=== PATIENT | male | born 1965 | race African-American/Black ===

== ENCOUNTER 2019-12-17 19:08 | Emergency (ER) | payer OTHER, SELFPAY ==
--- NOTE | ~2019-12-17 | XR_ITS ---
EXAMINATION: XR chest 2V DATE: 12/17/2019 20:11 INDICATION: Cough and shortness of breath TECHNIQUE: PA and lateral views of the chest were obtained. COMPARISON: Chest radiograph dated 04/01/2019 FINDINGS: Chronic tiny calcified nodules and branching Y pattern at the right lung base consistent with old gra nulomatous disease. The lungs remain otherwise clear with no focal airspace opacities, pulmonary chaitanya a, pleural effusion or pneumothorax. The cardiomediastinal silhouette is normal. Visualized bones and soft tissues are unremarkable. IMPRESSION: 1. No acute cardiopulmonary disease. Reviewed, dictated and finalized at location A. ISTRY ASSOCIATE
[2019-12-17 19:10] VITALS: BP 119/76; PULSE 74; RESP 18; TEMP 37; O2SAT 100
[2019-12-17 19:25] VITALS: O2SAT 100
--- NOTE | 2019-12-17 19:31 | ED.URI ---
HPI - URI/Sore Throat General Chief Complaint: Upper Respiratory Infection Stated Complaint: SOB, HIGHTOWER Time Seen by Provider: 12/17/19 19:23 Source: patient Mode of arrival: ambulatory Limitations: no limitations History of Present Illness HPI Narrative: This is a 54 year old male that presents to the ER for cold symptoms x 3 days. Reports cough, congestion, headache, sore throat and wheezing. Reports a history of asthma. Reports he has been doing his nebulizer treatments at home with little relief. Denies fever or chest pain. Related Data Allergies Allergy/AdvReac Type Severity Reaction Status Date / Time No Known Allergies Allergy Verified 12/17/19 19:29 Review of Systems Review of Systems: Narrative: CONSTITUTIONAL: Denies fever ENT: Reports rhinorrhea, congestion, sore throat. Denies otalgia. CARDIOVASCULAR: Denies chest pain RESPIRATORY: Reports cough and dyspnea. NEUROLOGIC: Reports headache. Denies weakness. All systems reviewed & are unremarkable except as noted in HPI and below PMFSH Past Medical History Medical History (Updated 12/17/19 @ 20:49 by Tierra Maria PA-C) History of asthma History of hyperlipidemia History of hypertension Social History Social History Gender identity (if verbalized by the patient): Male Exam Narrative: Exam Narrative: GENERAL: Well-appearing, well-nourished, and in no acute distress. HEAD: Normocephalic, atraumatic. EYES: EOMI. ENT: Turbinates swollen and pale. Mucous membranes moist. Oropharynx without tonsillar hypertrophy exudate or other lesions. Bilateral TMs pearly martinez non-bulging NECK: Supple. No adenopathy or masses. CHEST: No respiratory distress. Diffuse expiratory wheezing. No rales or rhonchi HEART: Regular rate and rhythm. No murmur heard. Normal peripheral pulses. EXTREMITIES: Normal range of motion. No edema. SKIN: Warm, dry, no rash. NEURO: No focal deficits. Alert and oriented x3. PSYCH: Normal mood and affect Course Vital Signs Vital signs: Vital Signs Temperature 98.6 F 12/17/19 19:10 Pulse Rate 74 12/17/19 19:10 Respiratory Rate 18 12/17/19 19:10 Blood Pressure 119/76 12/17/19 19:10 Pulse Oximetry 100 12/17/19 19:10 Temperature 98.6 F 12/17/19 19:10 Pulse Rate 79 12/17/19 20:31 Respiratory Rate 18 12/17/19 20:31 Blood Pressure 119/76 12/17/19 19:10 Pulse Oximetry 100 12/17/19 19:25 MDM - URI/Sore Throat MDM Narrative Medical decision making narrative: Patient presents the emergency department for cold symptoms x3 days. Patient reports history of asthma and he has been nebulizer treatments more than usual. Patient with diffuse expiratory wheezing initially. This improved after nebulizer treatments and a dose of IV steroids. His vitals have been normal. CBC and metabolic panel without acute changes. Chest x-ray without acute changes. Patient was instructed to continue nebulizer treatments as needed and will be started on 5 days of prednisone for asthma exacerbation. He is to follow-up with his primary care doctor. He was given warnings to return to the ER Lab Data Attestation: I reviewed the patient's lab results. Result diagrams: 12/17/19 19:42 12/17/19 19:42 Labs: Lab Results 12/17/19 12/17/19 Range/Units 19:42 19:42 WBC 8.5 (4.5-10.0) K/mm3 RBC 5.46 (4.6-6.20) M/mm3 Hgb 14.4 (14.0-18.0) g/dL Hct 45.8 (42.0-52.0) % MCV 83.9 (80-100) fl MCH 26.4 (26-34) pg MCHC 31.4 L (32-36) g/dl RDW 12.8 (11.5-14.5) % Plt Count 313 (150-375) k/mm3 MPV 9.3 (7.4-10.4) fl Immature Gran % (Auto) 2.7 H (0-0.5) % Neut % (Auto) 30.3 L (45.5-73.1) % Lymph % (Auto) 42.5 (18.3-44.2) % [place] % (Auto) 8.8 H (2.6-8.5) % Eos % (Auto) 14.2 H (0-4.4) % Baso % (Auto) 1.5 H (0.2-1.2) % Lymph # (Auto) 3.60 H (0.9-3.2) K/mm3 [place] # (Auto) 0.8 H (0.1-0.6) K/mm3 Eos # (Auto) 1.2 H (0-0.3) K/mm3 Baso # (Auto) 0.1
[2019-12-17 19:45] VITALS: PULSE 73; RESP 16
[2019-12-17] MEDS: methylPREDNISolone SOD SUCC 125 MG VIAL IV PUSH (19:45)
[2019-12-17] MEDS: IPRATROPIUM BR 0.02% INH SOLN 0.5 MG/2.5 ML VIAL INHALATION ×2 (19:45→20:31)
[2019-12-17] MEDS: ALBUTEROL SULFATE NEB 2.5 MG/0.5 ML INH 5 MG INHALATION ×2 (19:45→20:31)
[2019-12-17 19:49] LABS: Basophils Absolute Auto 0.1 K/mm3 (0.0-0.1); Basophils Percent Auto 1.5 % (0.2-1.2); Eosinophils Absolute Auto 1.2 K/mm3 (0-0.3); Eosinophils Percent Auto 14.2 % (0-4.4); Hematocrit 45.8 % (42.0-52.0); Hemoglobin 14.4 g/dL (14.0-18.0); Immature Granulocyte Absolute 0.23 K/mm3 (0.00-0.031); Immature Granulocyte Percent A 2.7 % (0-0.5); Lymphocytes Percent Auto 42.5 % (18.3-44.2); Mean Corpuscular HGB Conc 31.4 g/dl (32-36); Mean Corpuscular Hemoglobin 26.4 pg (26-34); Mean Corpuscular Volume 83.9 fl (80-100); Mean Platelet Volume 9.3 fl (7.4-10.4); Monocytes Absolute Auto 0.8 K/mm3 (0.1-0.6); Monocytes Percent Auto 8.8 % (2.6-8.5); Neutrophils Absolute Auto 2.6 K/mm3 (1.3-6.7); Neutrophils Percent Auto 30.3 % (45.5-73.1); Platelet Count Result 313 k/mm3 (150-375); Red Blood Count 5.46 M/mm3 (4.6-6.20); Red Cell Distribution Width 12.8 % (11.5-14.5); White Blood Count 8.5 K/mm3 (4.5-10.0)
[2019-12-17 19:57] VITALS: PULSE 77; RESP 18
[2019-12-17 20:02] LABS: Blood Urea Nitrogen 17 mg/dL (9-20); Calcium 9.4 mg/dL (8.4-10.2); Carbon Dioxide 29 mmol/L (22-30); Chloride 97 mmol/L (98-107); Estimated CRCL calculation 76 ml/min; Estimated Glomerular Filt Rate > 60; Glucose 93 mg/dL (75-110); Potassium 3.8 mmol/L (3.4-5.0); Sodium 135 mmol/L (137-145)
[2019-12-17 20:31] VITALS: PULSE 79; RESP 18
[2019-12-17 21:39] VITALS: BP 102/57; PULSE 81; RESP 20; O2SAT 97
== END 2019-12-17 21:17 | disposition home or self-care (01) ==
PROVIDERS: Physician Assistant; Emergency Provider Emergency Medicine; PCP Registered Nurse
DX: J45.21 Mild intermittent asthma with (acute) exacerbation (principal); E78.5 Hyperlipidemia, unspecified; I10 Essential (primary) hypertension
CPT/HCPCS: 36415; 71046; 80048; 85025; 87804; 94640; 96374; 99284; J2930

== ENCOUNTER 2020-05-08 15:58 | Emergency (ER) | payer OTHER, SELFPAY ==
[2020-05-08] VITALS (8 sets, daily range): BP systolic 104–175; BP diastolic 68–84; PULSE 83–99; RESP 14–24; TEMP 37.1; O2SAT 95–100
--- NOTE | ~2020-05-08 | XR_ITS ---
EXAMINATION: XR chest 2V DATE: 05/08/2020 17:17 INDICATION: Shortness of breath TECHNIQUE: PA and lateral views of the chest are obtained. COMPARISON: 12/17/2019 FINDINGS: The lungs are free of acute opacities. There is no pleural effusion or pneumothorax. The ca rdiomediastinal silhouette is normal. The visualized bones and soft tissues are unremarkable. IMPRESSION: 1. No acute cardiopulmonary abnormality. Reviewed, dictated and finalized at location A.
--- NOTE | 2020-05-08 16:17 | ED.GENADULT ---
HPI - General Adult General Chief complaint: Shortness of Breath/Dyspnea Stated complaint: wheezing Time Seen by Provider: 05/08/20 16:12 Source: patient Mode of arrival: ambulatory Limitations: no limitations History of Present Illness HPI narrative: Patient is a 54-year-old male who presents for evaluation of shortness of breath. Patient reports he has a history of asthma/COPD, has been using albuterol and treatments at home without much improvement in his symptoms. States he has had increased wheezing over the past 24 hours. Not currently taking any antibiotics or steroids. No cough or fever. Patient reports some sinus congestion, denies sore throat. No myalgias, no nausea, vomiting, chest pain, diarrhea. No known COVID exposures. No recent sick contacts. Related Data Home Medications Medication Instructions Recorded Confirmed albuterol sulfate INHALATION PRN PRN 05/08/20 aspirin DAILY 05/08/20 budesonide-formoterol [Symbicort] INHALATION DAILY 05/08/20 fluticasone propionate INTRANASAL DAILY 05/08/20 hydrochlorothiazide DAILY 05/08/20 ipratropium-albuterol ml INHALATION PRN PRN 05/08/20 losartan DAILY 05/08/20 simvastatin mg HS 05/08/20 umeclidinium [Incruse Ellipta] INHALATION DAILY 05/08/20 Allergies Allergy/AdvReac Type Severity Reaction Status Date / Time No Known Allergies Allergy Verified 05/08/20 16:08 Review of Systems Review of Systems: Narrative: CONSTITUTIONAL: Denies fever, chills, or sweats. ENT: Reports sinus congestion, denies sore throat or otalgia CARDIOVASCULAR: Denies chest pain RESPIRATORY: Reports wheezing and shortness of breath GASTROINTESTINAL: Denies abdominal pain, nausea, vomiting, or diarrhea. GENITOURINARY: Denies dysuria or hematuria. SKIN: Denies rash or itching. MUSCULOSKELETAL: Denies back pain, joint pain, or myalgia. NEUROLOGIC: Denies headache, numbness, or weakness. [facility] Past Medical History Medical History (Updated 05/08/20 @ 18:24 by Kim Avitia MD) History of asthma History of hyperlipidemia History of hypertension Left wrist fracture Surgical History Surgical History H/O left wrist surgery Social History Social History (Updated 05/08/20 @ 16:28 by Kim Avitia MD) Smoking status: Never smoker Alcohol intake: never Substance use: never Gender identity (if verbalized by the patient): Male Exam Narrative: Exam Narrative: GENERAL: Awake, alert, conversant HEAD: Normocephalic, atraumatic. EYES: PERRLA and EOMI. ENT: Nares clear, no rhinorrhea or epistaxis. Mucous membranes moist. Sinus congestion. NECK: Supple. CHEST: No respiratory distress, mild tachypnea, wheezing present bilateral lung flores HEART: Regular rate, sinus rhythm ABDOMEN:Non distended, non tender EXTREMITIES: Normal range of motion. No edema. SKIN: Warm, dry, no rash. NEURO:No focal deficits. Alert and oriented x3 Course Vital Signs Vital signs: Vital Signs Temperature 37.1 C 05/08/20 16:09 Pulse Rate 94 05/08/20 16:09 Respiratory Rate 22 H 05/08/20 16:09 Blood Pressure 175/84 H 05/08/20 16:09 Pulse Oximetry 96 05/08/20 16:09 Temperature 37.1 C 05/08/20 16:09 Pulse Rate 86 05/08/20 17:44 Respiratory Rate 18 05/08/20 17:44 Blood Pressure 104/68 05/08/20 17:44 Pulse Oximetry 95 05/08/20 17:44 Medical Decision Making MDM Narrative Medical decision making narrative: The patient presented for evaluation of wheezing and shortness of breath. Patient states this feels very consistent with asthma exacerbations he has had in the past, has been using his albuterol treatments at home with some improvement in his symptoms. Because wheezing persisted, patient sought care in the emergency department. The time of assessment, ABCs are intact and vital signs are stable. He has mild tachypnea, no severe hypoxemia or respiratory distress. He has expiratory wheezing in
[2020-05-08] MEDS: IPRATROPIUM BR 0.02% INH SOLN 0.5 MG/2.5 ML VIAL INHALATION (16:37)
[2020-05-08] MEDS: ALBUTEROL SULFATE NEB 2.5 MG/0.5 ML INH 5 MG INHALATION (16:37)
[2020-05-08] MEDS: methylPREDNISolone SOD SUCC 125 MG VIAL IV PUSH (16:40)
[2020-05-08] MEDS: MAGNESIUM SULF 2 GM/WATER 50ML 2 GM/50 ML BAG IVPB (16:40)
[2020-05-08 16:42] LABS: Basophils Absolute Auto 0.1 K/mm3 (0.0-0.1); Basophils Percent Auto 0.9 % (0.2-1.2); Eosinophils Absolute Auto 0.2 K/mm3 (0-0.3); Eosinophils Percent Auto 1.6 % (0-4.4); Hematocrit 40.3 % (42.0-52.0); Hemoglobin 13.1 g/dL (14.0-18.0); Immature Granulocyte Absolute 0.05 K/mm3 (0.00-0.031); Immature Granulocyte Percent A 0.5 % (0-0.5); Lymphocytes Absolute Auto 2.04 K/mm3 (0.9-3.2); Lymphocytes Percent Auto 21.8 % (18.3-44.2); Mean Corpuscular HGB Conc 32.5 g/dl (32-36); Mean Corpuscular Hemoglobin 27.4 pg (26-34); Mean Corpuscular Volume 84.3 fl (80-100); Mean Platelet Volume 9.5 fl (7.4-10.4); Monocytes Percent Auto 10.3 % (2.6-8.5); Neutrophils Absolute Auto 6.1 K/mm3 (1.3-6.7); Neutrophils Percent Auto 64.9 % (45.5-73.1); Platelet Count Result 243 k/mm3 (150-375); Red Blood Count 4.78 M/mm3 (4.6-6.20); Red Cell Distribution Width 13.2 % (11.5-14.5); White Blood Count 9.4 K/mm3 (4.5-10.0)
[2020-05-08 16:53] LABS: Blood Urea Nitrogen 13 mg/dL (9-20); Calcium 9.2 mg/dL (8.4-10.2); Carbon Dioxide 26 mmol/L (22-30); Chloride 104 mmol/L (98-107); Estimated CRCL calculation 64 ml/min; Estimated Glomerular Filt Rate > 60; Glucose 116 mg/dL (75-110); Potassium 4.1 mmol/L (3.4-5.0); Sodium 136 mmol/L (137-145)
[2020-05-08] MEDS: ALBUTEROL SULFATE NEB 2.5 MG/0.5 ML INH 10 MG INHALATION (18:25)
--- NOTE | 2020-05-08 19:02 | PC.NURSE ---
amb around dept on room air. o2 sat 97-99%. pt nataly well. updated on pt status
== END 2020-05-08 19:07 | disposition home or self-care (01) ==
PROVIDERS: Emergency Provider Emergency Medicine; PCP Registered Nurse
DX: J45.41 Moderate persistent asthma with (acute) exacerbation (principal); E78.5 Hyperlipidemia, unspecified; I10 Essential (primary) hypertension; J44.9 Chronic obstructive pulmonary disease, unspecified
CPT/HCPCS: 36415; 71046; 80048; 85025; 94640; 96365; 96375; 99284; J2930; J3475

== ENCOUNTER 2020-12-15 20:53 | Emergency (ER) | payer OTHER, SELFPAY ==
--- NOTE | ~2020-12-15 | XR_ITS ---
EXAMINATION: XR chest 2V 12/15/2020 22:09 INDICATION: Cough and shortness of breath. Chest pain. PROCEDURE: 2 view chest COMPARISON: Comparison to multiple prior studies sequentially, with oldest reviewed study dated 01/02. FINDINGS: The lungs are clear. The cardiomediastinal silhouette is within normal limits. There are no pleural effusions. There is no pneumothorax suspected. IMPRESSION: 1: NO ACUTE CARDIOPULMONARY DISEASE. Reviewed, dictated and finalized at location A. F DIGITAL OFFICER
[2020-12-15 20:58] VITALS: BP 141/79; PULSE 84; RESP 17; TEMP 36.9; O2SAT 98
--- NOTE | 2020-12-15 21:57 | ECG_ITS ---
Measurements Intervals [place] Rate: 70 P: IA: 0 QRS: 74 QRSD: 89 T: 53 QT: 372 QTc: 402 Interpretive Statements SINUS RHYTHM FREQUENT ATRIAL PREMATURE COMPLEXES VOLTAGE CRITERIA FOR LVH ABNORMAL ECG Electronically Signed On 12-16-2020 7:03:35 FAMILY LAW MEDIATOR by Robel Aguilar D.O.
--- NOTE | 2020-12-15 21:58 | ED.BACK ---
HPI - Back Pain/Injury General Chief Complaint: Back Pain/Injury Stated Complaint: back pain, wheezing, sinus congestion Time Seen by Provider: 12/15/20 21:11 Source: patient Mode of arrival: ambulatory Limitations: no limitations History of Present Illness HPI Narrative: Patient is a 55-year-old male complaining of cough, productive, clear sputum, and left upper back pain x3 to 4 days. Patient states his upper back pain is 5 out of 10, dull, worse with coughing and movement. Patient denies any chest pain, shortness of breath, abdominal pain, nausea, vomiting, diaphoresis, fever or chills. Related Data Home Medications Medication Instructions Recorded Confirmed albuterol sulfate INHALATION PRN PRN 05/08/20 aspirin DAILY 05/08/20 budesonide-formoterol [Symbicort] INHALATION DAILY 05/08/20 fluticasone propionate INTRANASAL DAILY 05/08/20 hydrochlorothiazide DAILY 05/08/20 ipratropium-albuterol ml INHALATION PRN PRN 05/08/20 losartan DAILY 05/08/20 simvastatin mg HS 05/08/20 umeclidinium [Incruse Ellipta] INHALATION DAILY 05/08/20 Allergies Allergy/AdvReac Type Severity Reaction Status Date / Time No Known Allergies Allergy Verified 12/15/20 21:04 Review of Systems Review of Systems: All systems reviewed & are unremarkable except as noted in HPI and below Constitutional: Constitutional: Denies body ache(s), Denies chills, Denies excessive sweating, Denies fatigue, Denies fever(s), Denies headache(s), Denies lethargy, Denies malaise, Denies weakness and Denies weight loss Eyes: Eyes: Denies blurry vision, Denies change in vision and Denies loss of vision ENT: Denies dizziness, Denies ear discharge, Denies headache(s), Denies lip swelling, Denies epistaxis, Denies nasal congestion, Denies neck pain, Denies throat swelling and Denies tongue swelling Cardiovascular: Cardiovascular: Denies chest pain, Denies chest pain at rest, Denies chest pain with activity, Denies diaphoresis, Denies rapid heart rate, Denies edema, Denies irregular heart rhythm, Denies lightheadedness, Denies palpitations, Denies dyspnea and Denies dyspnea on exertion Respiratory: Respiratory: Denies chest congestion, Denies hemoptysis, Denies dyspnea and Denies dyspnea on exertion Gastrointestinal: Gastrointestinal: Denies abdominal pain, Denies melena, Denies hematochezia, Denies diarrhea, Denies nausea, Denies vomiting and Denies hematemesis Musculoskeletal: Musculoskeletal: Denies abnormal gait, Denies deformity, Denies joint swelling, Denies limited range of motion, Denies neck pain and Denies numbness Neurologic: Denies Abnormal speech present, Denies abnormal gait, Denies confusion, Denies dizziness, Denies headache(s), Denies focal weakness, Denies loss of vision, Denies numbness, Denies Other visual disturbances, Denies Sensory deficit (Neuro) and Denies weakness Psychiatric: Psychiatric: Denies confusion, Denies depression, Denies auditory hallucinations, Denies homicidal ideation and Denies suicidal ideation Endocrine: Endocrine: Denies cold intolerance, Denies excessive sweating, Denies fatigue, Denies heat intolerance and Denies palpitations Hematologic/Lymphatic: Hematologic/Lymphatic: Denies easy bleeding and Denies easy bruising Allergic/Immunologic: Allergic/Immunologic: Denies lip swelling, Denies throat swelling and Denies tongue swelling PMFSH Past Medical History Medical History History of asthma History of hyperlipidemia History of hypertension Left wrist fracture Surgical History Surgical History H/O left wrist surgery Social History Social History Smoking status: Never smoker Alcohol intake: never Substance use: never Gender identity (if verbalized by the patient): Male Exam Const: General: cooperative, healthy appearing, comfortable, no
[2020-12-15 22:10] LABS: Basophils Absolute Auto 0.2 K/mm3 (0.0-0.1); Basophils Percent Auto 2.5 % (0.2-1.2); Eosinophils Absolute Auto 1.3 K/mm3 (0-0.3); Eosinophils Percent Auto 18.7 % (0-4.4); Hematocrit 40.3 % (42.0-52.0); Hemoglobin 12.8 g/dL (14.0-18.0); Immature Granulocyte Absolute 0.01 K/mm3 (0.00-0.031); Immature Granulocyte Percent A 0.1 % (0-0.5); Lymphocytes Absolute Auto 2.67 K/mm3 (0.9-3.2); Lymphocytes Percent Auto 38.8 % (18.3-44.2); Mean Corpuscular HGB Conc 31.8 g/dl (32-36); Mean Corpuscular Hemoglobin 26.8 pg (26-34); Mean Corpuscular Volume 84.5 fl (80-100); Mean Platelet Volume 9.1 fl (7.4-10.4); Monocytes Absolute Auto 0.6 K/mm3 (0.1-0.6); Monocytes Percent Auto 8.4 % (2.6-8.5); Neutrophils Absolute Auto 2.2 K/mm3 (1.3-6.7); Neutrophils Percent Auto 31.5 % (45.5-73.1); Platelet Count Result 265 k/mm3 (150-375); Red Blood Count 4.77 M/mm3 (4.6-6.20); White Blood Count 6.9 K/mm3 (4.5-10.0)
[2020-12-15 22:22] LABS: Alanine Aminotransferase 14 U/L (4-50); Albumin Level 3.8 g/dL (3.5-5.1); Alkaline Phosphatase 61 U/L (38-126); Anion Gap 4 mmol/L (8-16); Aspartate Amino Transferase 24 U/L (17-59); Bilirubin,Total 0.7 mg/dL (0.2-1.3); Blood Urea Nitrogen 12 mg/dL (9-20); Calcium 8.8 mg/dL (8.4-10.2); Carbon Dioxide 28 mmol/L (22-30); Chloride 106 mmol/L (98-107); Estimated CRCL calculation 55 ml/min; Estimated Glomerular Filt Rate > 60; Glucose 99 mg/dL (75-110); Potassium 3.9 mmol/L (3.4-5.0); Sodium 138 mmol/L (137-145)
[2020-12-15 22:26] LABS: D Dimer < 0.22 ug/mL (<0.48)
[2020-12-15 23:08] VITALS: BP 138/79; PULSE 78; RESP 17; O2SAT 98
== END 2020-12-15 23:10 | disposition home or self-care (01) ==
PROVIDERS: Emergency Provider Emergency Medicine; PCP Registered Nurse
DX: J20.9 Acute bronchitis, unspecified (principal); S29.019A Strain of muscle and tendon of unspecified wall of thorax, initial encounter; J45.909 Unspecified asthma, uncomplicated; E78.5 Hyperlipidemia, unspecified; I10 Essential (primary) hypertension; R94.31 Abnormal electrocardiogram [ECG] [EKG]
CPT/HCPCS: 36415; 71046; 80053; 85025; 85380; 93005; 99283

== ENCOUNTER 2021-05-23 21:53 | Emergency (ER) | payer OTHER, SELFPAY ==
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
[2021-05-23 22:04] VITALS: BP 134/71; PULSE 87; RESP 20; TEMP 36.7; O2SAT 99
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
[2021-05-23] MEDS: IBUPROFEN 400 MG TABLET 800 MG PO (22:56)
--- NOTE | 2021-05-23 22:56 | PC.NURSE ---
Patient does not want to take cyclobenzaprine at this time. States he may take it when he is discharged. Patient to xray at this time.
== END 2021-05-23 23:43 | disposition home or self-care (01) ==
LOC: ANHED 23:30
PROVIDERS: Emergency Provider General Practice; PCP Registered Nurse
DX: S16.1XXA Strain of muscle, fascia and tendon at neck level, initial encounter (principal); S46.912A Strain of unspecified muscle, fascia and tendon at shoulder and upper arm level, left arm, initial encounter; J45.909 Unspecified asthma, uncomplicated; E78.5 Hyperlipidemia, unspecified; I10 Essential (primary) hypertension; Z79.84 Long term (current) use of oral hypoglycemic drugs; M19.012 Primary osteoarthritis, left shoulder; M19.011 Primary osteoarthritis, right shoulder; V49.40XA Driver injured in collision with unspecified motor vehicles in traffic accident, initial encounter
CPT/HCPCS: 72125; 73030; 99284; A9270; L0140

== ENCOUNTER 2021-08-06 16:11 | Emergency (ER) | payer OTHER, SELFPAY ==
[2021-08-06] VITALS (14 sets, daily range): BP systolic 124–149; BP diastolic 73–86; PULSE 69–94; RESP 16–18; TEMP 36.6; O2SAT 97–100
--- NOTE | ~2021-08-06 | CT_ITS ---
EXAMINATION: CT brain wo con DATE: 08/06/2021 22:25 INDICATION: Headache with intermittent blurred vision and tingling in the hands. TECHNIQUE: Computed tomography (CT) of the head was performed without intravenous contrast. Sagittal and coronal reconstructions were performed. The mA was adjusted according to patient size. Iterative reconstruction technique was employed. The dose-length product was 681.00 mGy-cm. COMPARISON: head CT dated 11/25/2015 FINDINGS: No acute intracranial hemorrhage, acute infarction or abnormal extra axial fluid collection. Ventricl es are normal and symmetric. No mass/mass effect. Mild mucoperiosteal thickening the bilateral ethmoi d and sphenoid sinuses, decreased since the prior study. The orbits and mastoid air cells are normal. IMPRESSION: 1. Normal brain. No acute intracranial process. Reviewed, dictated and finalized at location A.
--- NOTE | 2021-08-06 21:44 | ECG_ITS ---
Measurements Intervals [place] Rate: 63 P: 70 MD: 137 QRS: 74 QRSD: 86 T: 54 QT: 377 QTc: 389 Interpretive Statements SINUS RHYTHM VOLTAGE CRITERIA FOR LVH BORDERLINE ECG Electronically Signed On 08-07-2021 6:31:53 CDT by Robel Aguilar D.O.
--- NOTE | 2021-08-06 21:53 | ED.HA ---
HPI - Headache General Chief Complaint: Headache Stated Complaint: headache Time Seen by Provider: 08/06/21 21:45 Source: patient Mode of arrival: ambulatory Limitations: no limitations History of Present Illness HPI Narrative: Patient is a 56-year-old male complaining of a headache, right frontal, sharp, throbbing, 8 out of 10, nonradiating started 3 days ago. Patient also states that he had blurred vision 2 days ago but now resolved. Patient denies any speech or visual disturbance, weakness or numbness, unsteady gait, neck pain, chest pain, shortness of breath, nausea, vomiting, fever or chills. Related Data Home Medications Medication Instructions Recorded Confirmed albuterol sulfate INHALATION PRN PRN 05/08/20 aspirin DAILY 05/08/20 budesonide-formoterol [Symbicort] INHALATION DAILY 05/08/20 fluticasone propionate INTRANASAL DAILY 05/08/20 hydrochlorothiazide DAILY 05/08/20 ipratropium-albuterol ml INHALATION PRN PRN 05/08/20 losartan DAILY 05/08/20 simvastatin mg HS 05/08/20 umeclidinium [Incruse Ellipta] INHALATION DAILY 05/08/20 Allergies Allergy/AdvReac Type Severity Reaction Status Date / Time No Known Allergies Allergy Verified 08/06/21 21:46 Review of Systems Review of Systems: All systems reviewed & are unremarkable except as noted in HPI and below Constitutional: Constitutional: Denies body ache(s), Denies chills, Denies excessive sweating, Denies fatigue, Denies fever(s), Denies headache(s), Denies lethargy, Denies malaise, Denies weakness and Denies weight loss Eyes: Eyes: Denies blurry vision, Denies change in vision and Denies loss of vision ENT: Denies dizziness, Denies ear discharge, Denies headache(s), Denies lip swelling, Denies epistaxis, Denies nasal congestion, Denies neck pain, Denies throat swelling and Denies tongue swelling Cardiovascular: Cardiovascular: Denies chest pain, Denies chest pain at rest, Denies chest pain with activity, Denies diaphoresis, Denies rapid heart rate, Denies edema, Denies irregular heart rhythm, Denies lightheadedness, Denies palpitations, Denies dyspnea and Denies dyspnea on exertion Respiratory: Respiratory: Denies chest congestion, Denies cough, Denies hemoptysis, Denies dyspnea and Denies dyspnea on exertion Gastrointestinal: Gastrointestinal: Denies abdominal pain, Denies melena, Denies hematochezia, Denies diarrhea, Denies nausea, Denies vomiting and Denies hematemesis Musculoskeletal: Musculoskeletal: Denies abnormal gait, Denies deformity, Denies joint swelling, Denies limited range of motion, Denies neck pain and Denies numbness Neurologic: Denies Abnormal speech present, Denies abnormal gait, Denies confusion, Denies dizziness, Denies focal weakness, Denies loss of vision, Denies numbness, Denies Other visual disturbances, Denies Sensory deficit (Neuro) and Denies weakness Psychiatric: Psychiatric: Denies confusion, Denies depression, Denies auditory hallucinations, Denies homicidal ideation and Denies suicidal ideation Endocrine: Endocrine: Denies cold intolerance, Denies excessive sweating, Denies fatigue, Denies heat intolerance and Denies palpitations Hematologic/Lymphatic: Hematologic/Lymphatic: Denies easy bleeding and Denies easy bruising Allergic/Immunologic: Allergic/Immunologic: Denies lip swelling, Denies throat swelling and Denies tongue swelling PMFSH Past Medical History Medical History History of asthma History of hyperlipidemia History of hypertension Left wrist fracture Surgical History Surgical History H/O left wrist surgery Social History Social History Smoking status: Never smoker Alcohol intake: never Substance use: never Gender identity (if verbalized by the patient): Male Exam Const: General: cooperative, healthy appearing, comfortable, n
[2021-08-06 22:12] LABS: Basophils Absolute Auto 0.1 K/mm3 (0.0-0.1); Basophils Percent Auto 0.9 % (0.2-1.2); Eosinophils Percent Auto 0.2 % (0-4.4); Hemoglobin 13.9 g/dL (14.0-18.0); Immature Granulocyte Absolute 0.04 K/mm3 (0.00-0.031); Immature Granulocyte Percent A 0.5 % (0-0.5); Lymphocytes Absolute Auto 2.02 K/mm3 (0.9-3.2); Lymphocytes Percent Auto 23.8 % (18.3-44.2); Mean Corpuscular HGB Conc 31.6 g/dl (32-36); Mean Corpuscular Hemoglobin 27.6 pg (26-34); Mean Corpuscular Volume 87.5 fl (80-100); Mean Platelet Volume 9.1 fl (7.4-10.4); Monocytes Absolute Auto 0.4 K/mm3 (0.1-0.6); Monocytes Percent Auto 4.6 % (2.6-8.5); Platelet Count Result 289 k/mm3 (150-375); Red Blood Count 5.03 M/mm3 (4.6-6.20); White Blood Count 8.5 K/mm3 (4.5-10.0)
[2021-08-06 22:21] LABS: Prothrombin Time 12.8 Seconds (11.1-14.7)
[2021-08-06 22:22] LABS: Anion Gap 8 mmol/L (8-16); Blood Urea Nitrogen 19 mg/dL (9-20); Calcium 9.9 mg/dL (8.4-10.2); Carbon Dioxide 27 mmol/L (22-30); Chloride 100 mmol/L (98-107); Estimated CRCL calculation 75 ml/min; Estimated Glomerular Filt Rate > 60; Glucose 113 mg/dL (65-110); Partial Thromboplastin Time 27.8 SECONDS (22.3-36.8); Potassium 4.5 mmol/L (3.4-5.0); Sodium 135 mmol/L (137-145)
[2021-08-06 22:33] LABS: Troponin I < 0.012 ng/mL (0.000-0.034)
[2021-08-06] MEDS: KETOROLAC 30 MG/ML VIAL (*BKC) IM (23:17)
== END 2021-08-07 00:23 | disposition home or self-care (01) ==
PROVIDERS: Emergency Provider Emergency Medicine; PCP Registered Nurse
DX: R51.9 Headache, unspecified (principal); J45.909 Unspecified asthma, uncomplicated; E78.5 Hyperlipidemia, unspecified; I10 Essential (primary) hypertension; Z79.84 Long term (current) use of oral hypoglycemic drugs; R94.31 Abnormal electrocardiogram [ECG] [EKG]
CPT/HCPCS: 36415; 70450; 80048; 84484; 85025; 85610; 85730; 93005; 96372; 99284; J1885

== ENCOUNTER 2021-12-10 16:36 | Emergency (ER) | payer OTHER, SELFPAY ==
--- NOTE | ~2021-12-10 | XR_ITS ---
EXAMINATION: XR chest 1V portable DATE: 12/11/2021 01:16 INDICATION: Wheezing and cough. TECHNIQUE: A single frontal view of the chest was obtained. COMPARISON: Chest 2 views 12/15/2020, chest CT will 05/18/2017 FINDINGS: There is mild atelectasis in lingula. No pleural effusion or pneumothorax. The heart size i s normal. There are prominent paracardial fat pads. IMPRESSION: 1. Mild atelectasis in lingula. Reviewed, dictated and finalized at location A. [employer]
[2021-12-10 18:16] VITALS: BP 147/91; PULSE 76; RESP 19; TEMP 37.1; O2SAT 96
[2021-12-11 01:19] VITALS: PULSE 82; RESP 18
[2021-12-11] MEDS: IPRATROPIUM BR 0.02% INH SOLN 0.5 MG/2.5 ML VIAL INHALATION (01:19)
[2021-12-11] MEDS: ALBUTEROL SULFATE NEB 2.5 MG/0.5 ML INH 5 MG INHALATION (01:19)
[2021-12-11 01:24] VITALS: PULSE 77; RESP 20
[2021-12-11] MEDS: methylPREDNISolone SOD SUCC 125 MG VIAL IV PUSH (01:27)
[2021-12-11 01:28] VITALS: O2SAT 96
[2021-12-11 01:31] LABS: Basophils Absolute Auto 0.1 K/mm3 (0.0-0.1); Basophils Percent Auto 1.8 % (0.2-1.2); Eosinophils Absolute Auto 1.3 K/mm3 (0-0.3); Eosinophils Percent Auto 17.9 % (0-4.4); Hematocrit 42.6 % (42.0-52.0); Hemoglobin 13.6 g/dL (14.0-18.0); Immature Granulocyte Absolute 0.03 K/mm3 (0.00-0.031); Immature Granulocyte Percent A 0.4 % (0-0.5); Lymphocytes Absolute Auto 2.81 K/mm3 (0.9-3.2); Lymphocytes Percent Auto 38.7 % (18.3-44.2); Mean Corpuscular HGB Conc 31.9 g/dl (32-36); Mean Corpuscular Hemoglobin 27.4 pg (26-34); Mean Corpuscular Volume 85.7 fl (80-100); Mean Platelet Volume 9.1 fl (7.4-10.4); Monocytes Absolute Auto 0.6 K/mm3 (0.1-0.6); Neutrophils Absolute Auto 2.4 K/mm3 (1.3-6.7); Neutrophils Percent Auto 33.2 % (45.5-73.1); Platelet Count Result 374 k/mm3 (150-375); Red Blood Count 4.97 M/mm3 (4.6-6.20); White Blood Count 7.3 K/mm3 (4.5-10.0)
[2021-12-11 01:58] LABS: Alanine Aminotransferase 18 U/L (4-50); Albumin Level 4.3 g/dL (3.5-5.1); Alkaline Phosphatase 79 U/L (38-126); Anion Gap 4 mmol/L (8-16); Aspartate Amino Transferase 30 U/L (17-59); Blood Urea Nitrogen 11 mg/dL (9-20); Calcium 9.2 mg/dL (8.4-10.2); Carbon Dioxide 27 mmol/L (22-30); Chloride 105 mmol/L (98-107); Estimated Glomerular Filt Rate > 60; Glucose 99 mg/dL (65-110); NT Pro B Type Natriuretic Pept 54 pg/mL (5-100); Potassium 3.6 mmol/L (3.4-5.0); Sodium 136 mmol/L (137-145); Troponin I < 0.012 ng/mL (0.000-0.034)
--- NOTE | 2021-12-11 02:46 | ED.GENADULT ---
HPI - General Adult General Chief complaint: Shortness of Breath/Dyspnea Stated complaint: wheezing Time Seen by Provider: 12/11/21 01:02 History of Present Illness HPI narrative: Patient 56-year-old gentleman who presents the emergency department with chief complaint of shortness of breath. Patient reports he has history of asthma reports that he has been wheezing a fair amount and feels as though his asthma is exacerbated. Patient reports he has been vaccinated for COVID-19 denies fever denies chills denies body aches. Patient states that the cough has been nonproductive. Patient reports the symptoms are worsened with exertion and improved with rest Related Data Home Medications Medication Instructions Recorded Confirmed albuterol sulfate INHALATION PRN PRN 05/08/20 aspirin DAILY 05/08/20 budesonide-formoterol [Symbicort] INHALATION DAILY 05/08/20 fluticasone propionate INTRANASAL DAILY 05/08/20 hydrochlorothiazide DAILY 05/08/20 ipratropium-albuterol ml INHALATION PRN PRN 05/08/20 losartan DAILY 05/08/20 simvastatin mg HS 05/08/20 umeclidinium [Incruse Ellipta] INHALATION DAILY 05/08/20 Allergies Allergy/AdvReac Type Severity Reaction Status Date / Time No Known Allergies Allergy Verified 08/06/21 21:46 Review of Systems Review of Systems: A 10 system review of systems was completed on the patient and is negative except for what is stated in the HPI. Nursing and ancillary documentation was reviewed. [facility] Past Medical History Medical History History of asthma History of hyperlipidemia History of hypertension Left wrist fracture Surgical History Surgical History H/O left wrist surgery Social History Social History Smoking status: Never smoker Alcohol intake: never Substance use: never Gender identity (if verbalized by the patient): Male Exam Narrative: GENERAL: Well-appearing, well-nourished, and in no acute distress. HEAD: Normocephalic, atraumatic. EYES: PERRLA and EOMI. ENT: Nares clear, no rhinorrhea or epistaxis. Mucous membranes moist. NECK: Supple. CHEST: Scattered wheezes to auscultation. No respiratory distress. HEART: Regular rate and rhythm. No murmur heard. Normal peripheral pulses. ABDOMEN: Soft, nontender, nondistended, normal active bowel sounds. EXTREMITIES: Normal range of motion. No edema. SKIN: Warm, dry, no rash. NEURO: No focal deficits. Alert and oriented x3. PSYCH: Normal mood and affect. Course Course Emergency Course: Patient received IV steroids and duo nebs in the ER chest x-ray shows no focal infiltrate Vital Signs Vital signs: Vital Signs Temperature 37.1 C 12/10/21 18:16 Pulse Rate 76 12/10/21 18:16 Respiratory Rate 19 12/10/21 18:16 Blood Pressure 147/91 H 12/10/21 18:16 Pulse Oximetry 96 12/10/21 18:16 Temperature 37.1 C 12/10/21 18:16 Pulse Rate 77 12/11/21 01:24 Respiratory Rate 20 12/11/21 01:24 Blood Pressure 147/91 H 12/10/21 18:16 Pulse Oximetry 96 12/11/21 01:28 Medical Decision Making Vital Signs Vital Signs: Vital Signs Temperature 37.1 C 12/10/21 18:16 Pulse Rate 76 12/10/21 18:16 Respiratory Rate 19 12/10/21 18:16 Blood Pressure 147/91 H 12/10/21 18:16 Pulse Oximetry 96 12/10/21 18:16 Temperature 37.1 C 12/10/21 18:16 Pulse Rate 77 12/11/21 01:24 Respiratory Rate 20 12/11/21 01:24 Blood Pressure 147/91 H 12/10/21 18:16 Pulse Oximetry 96 12/11/21 01:28 Lab Data Result diagrams: 12/11/21 01:25 12/11/21 01:25 Labs: Lab Results 12/11/21 12/11/21 Range/Units 01:25 01:25 WBC 7.3 (4.5-10.0) K/mm3 RBC 4.97 (4.6-6.20) M/mm3 Hgb 13.6 L (14.0-18.0) g/dL Hct 42.6 (42.0-52.0) % MCV 85.7 (80-100) fl MCH 27.4 (2
[2021-12-11 03:57] VITALS: BP 125/78; PULSE 88; RESP 16; O2SAT 100
== END 2021-12-11 04:01 | disposition home or self-care (01) ==
PROVIDERS: Emergency Provider Emergency Medicine; PCP Registered Nurse
DX: J45.901 Unspecified asthma with (acute) exacerbation (principal); E78.5 Hyperlipidemia, unspecified; I10 Essential (primary) hypertension
CPT/HCPCS: 36415; 71045; 80053; 83880; 84484; 85025; 94640; 96374; 99284; J2930

== ENCOUNTER 2021-12-22 15:17 | Outpatient (CLI) | payer OTHER, SELFPAY ==
--- NOTE | 2021-12-22 15:33 | ECG_ITS ---
Measurements Intervals [place] Rate: 90 P: 74 W[place]: 128 QRS: 77 QRSD: 73 T: 44 QT: 322 QTc: 394 Interpretive Statements SINUS RHYTHM VOLTAGE CRITERIA FOR LVH BORDERLINE ECG Electronically Signed On 12-22-2021 15:57:23 [employer] by Robel Aguilar D.O.
== END 2021-12-22 15:18 | disposition home or self-care (01) ==
LOC: ANHCARD 15:20
PROVIDERS: PCP Registered Nurse; Visit Provider Registered Nurse
DX: I10 Essential (primary) hypertension (principal)
CPT/HCPCS: 93005

== ENCOUNTER 2022-04-12 15:07 | Emergency (ER) | payer OTHER, SELFPAY ==
--- NOTE | ~2022-04-12 | XR_ITS ---
EXAMINATION: XR chest 1V portable DATE: 04/12/2022 15:54 INDICATION: Cough and wheezing. Shortness of breath. TECHNIQUE: A single frontal view of the chest was obtained. COMPARISON: Chest single view 12/11/2021, chest CT 05/18/2017 FINDINGS: There is no pneumonia, pleural effusion, or pneumothorax. The heart size is normal. IMPRESSION: 1. No acute cardiopulmonary disease. Reviewed, dictated and finalized at location A.
[2022-04-12 15:10] VITALS: BP 147/83; PULSE 109; RESP 16; TEMP 36.9; O2SAT 99
[2022-04-12 15:24] VITALS: BP 131/93; PULSE 106; RESP 20; O2SAT 95
[2022-04-12 15:32] VITALS: O2SAT 95; O2SAT 96
[2022-04-12] MEDS: predniSONE 20 MG TABLET 40 MG PO (15:58)
[2022-04-12 16:03] VITALS: BP 155/93; PULSE 106; RESP 20; O2SAT 96
[2022-04-12] MEDS: IPRATROPIUM BR 0.02% INH SOLN 0.5 MG/2.5 ML VIAL INHALATION (16:25)
[2022-04-12] MEDS: ALBUTEROL SULFATE NEB 2.5 MG/3 ML INH 5 MG INHALATION (16:25)
[2022-04-12 16:50] LABS: SARS-CoV-2 RNA PCR Negative
[2022-04-12 18:05] VITALS: O2SAT 94
--- NOTE | 2022-04-12 18:24 | ED.SOB ---
HPI - SOB/Dyspnea General Chief Complaint: Shortness of Breath/Dyspnea Stated Complaint: SOB, Cough Time Seen by Provider: 04/12/22 15:42 History of Present Illness HPI Narrative: 56-year-old male states that for the past few days, he has been having increasing shortness of breath, he has been using his inhalers which only helped a little bit, he states that he has also been having a slight cough, and fevers. No chest pain, nausea vomiting, diaphoresis. No sick contacts Related Data Home Medications Medication Instructions Recorded Confirmed albuterol sulfate 90 mcg/actuation inhalation PRN PRN Shortness Of 05/08/20 aerosol inhaler Breath Or Wheezing aspirin 81 mg tablet,delayed DAILY 05/08/20 release budesonide-formoterol HFA 160 inhalation DAILY 05/08/20 mcg-4.5 mcg/actuation aerosol inhaler (Symbicort) fluticasone propionate 50 intranasal DAILY 05/08/20 mcg/actuation nasal spray,suspension hydrochlorothiazide 12.5 mg capsule DAILY 05/08/20 ipratropium 0.5 mg-albuterol 3 mg ml inhalation PRN PRN Shortness Of 05/08/20 (2.5 mg base)/3 mL nebulization Breath Or Wheezing soln losartan 50 mg tablet DAILY 05/08/20 simvastatin 20 mg tablet mg HS 05/08/20 umeclidinium 62.5 mcg/actuation inhalation DAILY 05/08/20 blister powder for inhalation (Incruse Ellipta) Allergies Allergy/AdvReac Type Severity Reaction Status Date / Time No Known Allergies Allergy Verified 04/12/22 15:34 Review of Systems Review of Systems: CONST: No fever. HEENT: No sore throat C/V: No chest pain RESP: Cough and difficulty breathing GI: No nausea or vomiting : No dysuria. M/S: No joint pain. SKIN: No rash. NEURO: [No headache or focal numbness or weakness] PSYCH: [No depression] [facility] Past Medical History Medical History History of asthma History of hyperlipidemia History of hypertension Left wrist fracture Surgical History Surgical History H/O left wrist surgery Social History Social History Smoking status: Never smoker Alcohol intake: never Substance use: never Gender identity (if verbalized by the patient): Male Exam Narrative: EXAMINATION OF ORGAN SYSTEMS/BODY AREAS: Constitutional: Vital signs per nursing GENERAL:[No acute distress, non-toxic appearing.] HEAD: Normal with no signs of head trauma. EYES: EOMI, conjunctiva normal ENT: Hearing grossly intact LUNGS: Nonlabored breathing. Wheezing all lung flores. HEART: [Regular rate and rhythm] ABD: [Soft], [tender to palpation] EXT: Normal range of motion SKIN: [No rashes or lesions.] NEURO: [Alert and oriented x 3. No gross focal sensory or strength deficits.] PSYCH: Normal affect Course Vital Signs Vital signs: Vital Signs Temperature 98.4 F 04/12/22 15:10 Pulse Rate 109 H 04/12/22 15:10 Respiratory Rate 16 04/12/22 15:10 Blood Pressure 147/83 H 04/12/22 15:10 Pulse Oximetry 99 04/12/22 15:10 Oxygen Delivery Room Air 04/12/22 15:10 Temperature 98.4 F 04/12/22 15:10 Pulse Rate 108 H 04/12/22 18:38 Respiratory Rate 18 04/12/22 18:38 Blood Pressure 125/78 04/12/22 18:38 Pulse Oximetry 93 04/12/22 18:38 Oxygen Delivery Room Air 04/12/22 18:05 MDM - SOB/Dyspnea MDM Narrative Medical decision making narrative: ED COURSE AND MEDICAL DECISION MAKIN-year-old male with acute dyspnea and wheezing likely due to acute COPD exacerbation based on history and exam. Patient is hemodynamically stable. Nebulizer treatments are started and steroids given orally. Patient monitored in the ED for a couple of hours and on reevaluation is feeling significantly better. No respiratory distress or accessory muscle use. Good air movement bilateral lungs. Prescriptions for [steroid course] provided. Patient is given strict return prec
[2022-04-12 18:38] VITALS: BP 125/78; PULSE 108; RESP 18; O2SAT 93
== END 2022-04-12 18:41 | disposition home or self-care (01) ==
PROVIDERS: Emergency Provider Emergency Medicine; PCP Registered Nurse
DX: J44.1 Chronic obstructive pulmonary disease with (acute) exacerbation (principal); I10 Essential (primary) hypertension; E78.5 Hyperlipidemia, unspecified; Z20.822 Contact with and (suspected) exposure to COVID-19
CPT/HCPCS: 71045; 94640; 99283; C9803; J7512; U0003; U0005

== ENCOUNTER 2022-08-24 12:01 | Emergency (ER) | payer OTHER, SELFPAY ==
[2022-08-24 12:17] VITALS: BP 127/84; PULSE 77; RESP 18; TEMP 36.7; O2SAT 100
--- NOTE | 2022-08-24 13:27 | ED.GENADULT ---
HPI - General Adult General Chief complaint: Upper Respiratory Infection Stated complaint: Cough,Headache,Dizziness Source: patient Mode of arrival: ambulatory History of Present Illness HPI narrative: This is a 57-year-old male who presented to urgent care with complaints of dizziness, headache in left neck pain. According to patient he was in his backyard doing yard work when he started to experience dizzy shortly after he developed a headache. Patient notes that he went in his home and sat down after having the episodes. Patient did note that when he woke up this morning he also experienced some dizziness. Patient notes that he did drink fluid while working in the yard yesterday. The patient denies SOB, CP, palpitation, extremity numbness, , constipation, diarrhea, chills, or fever. Related Data Home Medications Medication Instructions Recorded Confirmed albuterol sulfate 90 mcg/actuation inhalation PRN PRN Shortness Of 05/08/20 aerosol inhaler Breath Or Wheezing aspirin 81 mg tablet,delayed DAILY 05/08/20 release budesonide-formoterol HFA 160 inhalation DAILY 05/08/20 mcg-4.5 mcg/actuation aerosol inhaler (Symbicort) fluticasone propionate 50 intranasal DAILY 05/08/20 mcg/actuation nasal spray,suspension hydrochlorothiazide 12.5 mg capsule DAILY 05/08/20 ipratropium 0.5 mg-albuterol 3 mg ml inhalation PRN PRN Shortness Of 05/08/20 (2.5 mg base)/3 mL nebulization Breath Or Wheezing soln losartan 50 mg tablet DAILY 05/08/20 simvastatin 20 mg tablet mg HS 05/08/20 umeclidinium 62.5 mcg/actuation inhalation DAILY 05/08/20 blister powder for inhalation (Incruse Ellipta) Allergies Allergy/AdvReac Type Severity Reaction Status Date / Time No Known Allergies Allergy Verified 08/24/22 12:23 Review of Systems Review of Systems: A 14 organ system Review of Systems was performed and pertinent positives included in the HPI, otherwise remaining ROS is negative. [facility] Past Medical History Medical History History of asthma History of hyperlipidemia History of hypertension Left wrist fracture Surgical History Surgical History H/O left wrist surgery Social History Social History Smoking status: Never smoker Alcohol intake: never Substance use: never Gender identity (if verbalized by the patient): Male Exam Narrative: GENERAL: This is a well-nourished, well-developed patient, in no apparent distress. HEAD: normocephalic, atraumatic. EYES: PERRL. Sclera clear/white. Vision is grossly intact. EARS: External ears normal, auditory canals with erythema and without drainage, TMs with erythema without perforation. Hearing grossly intact. NOSE: External nose normal with no obvious nasal discharge, nares without redness, no rhinorrhea. THROAT: Mucous membranes moist, posterior pharynx clear. NECK: Neck supple, non-tender without lymphadenopathy, masses or thyromegaly. CARDIOVASCULAR: Regular rate and rhythm without murmurs, gallops, or rubs. RESPIRATORY: Clear to auscultation. Breath sounds equal bilaterally. No wheezes, rales, or rhonchi. GASTROINTESTINAL: Abdomen soft, non-tender, nondistended. Bowel sounds are active. No hepato-splenomegaly, or palpable masses. No guarding. SKIN: warm, intact with no suspicious lesions or rash, good texture and turgor. NEURO: awake, alert, and oriented to person, place and time. There were no obvious focal neurologic abnormalities. EXTREMITIES: Normal range of motion. No edema. No calf tenderness. Course Course Emergency Course: Patient will discharge home with Augmentin for the treatment of right ear otitis media. He will also be given Flexeril for his left leg pain and instructed to use Tylenol for his headache. Level of Care: Express Care Visit Vital Signs Vital signs: Vital Signs
== END 2022-08-24 13:26 | disposition home or self-care (01) ==
PROVIDERS: Emergency Provider Nurse Practitioner; PCP Registered Nurse
DX: H66.91 Otitis media, unspecified, right ear (principal); Z20.822 Contact with and (suspected) exposure to COVID-19; J45.909 Unspecified asthma, uncomplicated; E78.5 Hyperlipidemia, unspecified; I10 Essential (primary) hypertension
CPT/HCPCS: 87426; 99213; C9803; G0463

== ENCOUNTER 2022-10-24 14:47 | Outpatient (CLI) | payer OTHER, SELFPAY ==
--- NOTE | ~2022-10-24 | XR_ITS ---
Cervical Spine: AP, lateral, open-mouth views Clinical History: Pain Findings: No fracture or subluxation identified. The vertebral bodies and posterior elements appear intact. The intervertebral disc spaces are well maintained. Pre-vertebral soft tissues are unremarka ble. Impression: No significant abnormality is seen. Reviewed, dictated and finalized at location [] ATER Impression: No significant abnormality is seen.
== END 2022-10-24 14:48 | disposition home or self-care (01) ==
PROVIDERS: PCP Registered Nurse; Visit Provider Registered Nurse
DX: M54.2 Cervicalgia (principal)
CPT/HCPCS: 72050

== ENCOUNTER 2022-11-19 16:42 | Emergency (ER) | payer OTHER, SELFPAY ==
--- NOTE | 2022-11-19 16:59 | ED.GENADULT ---
HPI - General Adult General Chief complaint: Upper Respiratory Infection Stated complaint: wheezing,sob Time Seen by Provider: 11/19/22 17:00 Source: patient Mode of arrival: ambulatory Limitations: no limitations History of Present Illness HPI narrative: 57-year-old male patient presents to [facility] with complaints of shortness of breath started yesterday. Patient states he feels like he has been wheezing and actually before he came here to the clinic today did use his rescue inhaler. Patient states he has been trying to use his albuterol at home but states he feels like it is not working properly. Patient does have history of asthma and is on several inhalers. Patient denies any headaches, body aches, chills, fevers. Denies any abdominal pain, nausea, vomiting or diarrhea. Patient denies any coughing. Patient denies any chest pain. Patient states he checked his blood sugar at a rajinder's house yesterday and states it was in the 400s however he did admit to just eating when he checked it. Patient states he checked it later and it was in the 170s. patient is requesting a blood sugar checked today. Related Data Home Medications Medication Instructions Recorded Confirmed aspirin 81 mg tablet,delayed 81 mg PO DAILY 05/08/20 11/19/22 release simvastatin 20 mg tablet 20 mg PO HS 05/08/20 11/19/22 albuterol sulfate 2.5 mg/3 mL 2.5 mg inhalation PRN PRN 11/19/22 11/19/22 (0.083 %) solution for nebulization Shortness Of Breath albuterol sulfate 90 mcg/actuation 2 puff inhalation PRN PRN 11/19/22 11/19/22 aerosol inhaler Shortness Of Breath budesonide-formoterol HFA 160 2 puff inhalation PRN PRN 11/19/22 11/19/22 mcg-4.5 mcg/actuation aerosol Shortness Of Breath inhaler (Symbicort) ipratropium 0.5 mg-albuterol 3 mg 2.5 ml inhalation PRN PRN 11/19/22 11/19/22 (2.5 mg base)/3 mL nebulization Shortness Of Breath soln losartan 50 mg-hydrochlorothiazide 50 tablet PO DAILY 11/19/22 11/19/22 12.5 mg tablet umeclidinium 62.5 mcg/actuation 2 inh inhalation PRN PRN Shortness 11/19/22 11/19/22 blister powder for inhalation Of Breath (Incruse Ellipta) Allergies Allergy/AdvReac Type Severity Reaction Status Date / Time No Known Allergies Allergy Verified 11/19/22 17:02 Review of Systems Review of Systems: CONSTITUTIONAL: Denies fever, chills, or sweats. EYES: Denies visual changes, redness, or discharge. ENT: Denies rhinorrhea, congestion, sore throat, or otalgia. CARDIOVASCULAR: Denies chest pain, palpitations, or edema. RESPIRATORY: Denies cough , positive dyspnea. GASTROINTESTINAL: Denies abdominal pain, nausea, vomiting, or diarrhea. GENITOURINARY: Denies dysuria or hematuria. SKIN: Denies rash or itching. MUSCULOSKELETAL: Denies back pain, joint pain, or myalgia. NEUROLOGIC: Denies headache, numbness, or weakness. PSYCHIATRIC: Denies anxiety or depression. [facility] Past Medical History Medical History History of asthma History of hyperlipidemia History of hypertension Left wrist fracture Surgical History Surgical History H/O left wrist surgery Social History Social History Smoking status: Never smoker Alcohol intake: never Substance use: never Gender identity (if verbalized by the patient): Male Comments At the time of my signature I agree with nursing past medical history, surgical, social, and family history. There is no relevant family history pertinent to the presenting complaint. Exam Narrative: GENERAL: Well-appearing, well-nourished, and in no acute distress. HEAD: Normocephalic, atraumatic. EYES: PERRLA and EOMI. ENT: Nares clear, no rhinorrhea or epistaxis. Mucous membranes moist. Posterior pharynx with no erythema, tonsillar enlargement, exudates or lesions present. Bilateral TMs are clear no erythema 4 month no
[2022-11-19 17:01] VITALS: BP 129/77; PULSE 82; RESP 18; TEMP 36.8; O2SAT 100
[2022-11-19 17:05] VITALS: BP 129/77; PULSE 82; RESP 18; TEMP 36.8; O2SAT 100
--- NOTE | 2022-11-19 17:22 | ECG_ITS ---
Measurements Intervals [place] Rate: 72 P: 64 [place]: 143 QRS: 58 QRSD: 78 T: 30 QT: 360 QTc: 396 Interpretive Statements SINUS RHYTHM LEFT VENTRICULAR HYPERTROPHY BORDERLINE ECG COMPARED TO ECG 12/22/2021 15:41:27 NO SIGNIFICANT CHANGES Electronically Signed On 11-20-2022 7:59:03 [employer] by Robel Aguilar D.O.
[2022-11-19 17:30] LABS: Glucose Point of Care 88 mg/dl (65-105)
== END 2022-11-19 17:55 | disposition home or self-care (01) ==
PROVIDERS: Emergency Provider Nurse Practitioner Family; PCP Registered Nurse
DX: J45.901 Unspecified asthma with (acute) exacerbation (principal); E78.5 Hyperlipidemia, unspecified; I10 Essential (primary) hypertension; Z79.82 Long term (current) use of aspirin
CPT/HCPCS: 82948; 93005; 99213; G0463